=== PATIENT | female | born 1975 | race Two or more races ===

== ENCOUNTER 2016-12-01 22:04 | Emergency (ER) | payer MEDICAID ==
--- NOTE | 2016-12-02 00:46 | ER Document Report ---
ED GI/ - General Chief Complaint: Constipation Stated Complaint: BOWEL ISSUES Time seen by provider: 00:45 Notes: Patient is a 40-year-old female, A3, that comes emergency department for chief complaint of constipation and also vaginal bleeding. Patient states she was told she was 4-5 weeks along 2-3 weeks ago, had a positive but suggested a different hospital reportedly, states she has had vaginal spotting for the past week with some cramping. She denies fever, vomiting, flank pain, vaginal discharge, dysuria. - Related Data Allergies/Adverse Reactions: No Known Allergies Allergy (Unverified 12/01/16 22:31) Past Medical History - General Information source: Patient - Social History Smoking Status: Never Smoker Frequency of alcohol use: None Drug Abuse: None Lives with: Family Family History: Reviewed & Not Pertinent - Medical History Medical History: Negative Renal/ Medical History: Denies: Hx Peritoneal Dialysis Surgical Hx: Negative - Immunizations Immunizations up to date: Yes Hx Diphtheria, Pertussis, Tetanus Vaccination: Yes Review of Systems - Review of Systems Constitutional: No symptoms reported EENT: No symptoms reported Cardiovascular: No symptoms reported Respiratory: No symptoms reported Gastrointestinal: See HPI Genitourinary: See HPI Female Genitourinary: See HPI Musculoskeletal: No symptoms reported Skin: No symptoms reported Hematologic/Lymphatic: No symptoms reported Neurological/Psychological: No symptoms reported Physical Exam - Vital signs Vitals: Temp Pulse BP Pulse Ox 98.3 F 82 127/77 H 100 12/01/16 22:33 12/01/16 22:33 12/01/16 22:33 12/01/16 22:33 Interpretation: Normal - General General appearance: Appears well, Alert In distress: None - HEENT Head: Normocephalic, Atraumatic Eyes: Normal Extraocular movements intact: Yes Eyelashes: Normal Pupils: PERRL Sinus: Normal Nasal: Normal Mouth/Lips: Normal Mucous membranes: Normal Pharynx: Normal Neck: Normal - Respiratory Respiratory status: No respiratory distress Chest status: Nontender Breath sounds: Normal. No: Decreased air movement Chest palpation: Normal - Cardiovascular Rhythm: Regular. No: Tachycardia Heart sounds: Normal auscultation, S1 appreciated, S2 appreciated Murmur: No - Abdominal Inspection: Normal Distension: No distension Bowel sounds: Normal Tenderness: Nontender. No: Tender, Guarding Organomegaly: No organomegaly - Back Back: Normal, Nontender. No: Tender - Extremities General upper extremity: Normal inspection, Nontender, Normal color, Normal ROM , Normal temperature General lower extremity: Normal inspection, Nontender, Normal color, Normal ROM , Normal temperature, Normal weight bearing. 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 RhoGAM is not indicated. Patient still has not provided a urinalysis but is requesting to leave without giving a sample. Patient asymptomatic on reevaluation. Requesting stool softener, provided with options, discussed UNDERGROUND SUPERVISOR follow-up, patient states she has an appointment in several days for a close follow-up, provided with copies of her paperwork, discussed return precautions, patient states understanding and agreement. - Vital Signs Vital signs: Temp Pulse Resp BP Pulse Ox 99 F 88 20 132/68 H 99 12/02/16 05:29 12/02/16 05:29 12/02/16 05:29 12/02/16 05:29 12/02/16 05:29 - Laboratory Result Diagrams: 12/02/16 02:26 Laboratory results interpreted by me: 12/02/16 12/02/16 02:26 02:26 RDW 14.5 H Beta HCG, Quant 80.82 H Discharge - Discharge Clinical Impression: Vaginal bleeding Condition: Stable Disposition: HOME, SELF-CARE Additional Instructions: Examination and workup is consistent with an early . Because of the bleeding avoid any stressing physical activity such as running, jumping, lifting. Avoid sexual intercourse until cleared to do so by UNDERGROUND SUPERVISOR. Take your lab and ultrasound report with you to your appointment. Take the Colace as directed, take the magnesium citrate (start with 08/07 to 2 initially) to help move bowels. Return for any concerning symptoms. Prescriptions: Docusate Sodium [Colace 100 mg Capsule] 100 mg PO DAILY #30 capsule
[2016-12-02 02:36] LABS: ABSOLUTE BASOPHILS # (AUTO) 0.1 10^3/uL (0.0-0.2); ABSOLUTE EOSINOPHILS # (AUTO) 0.2 10^3/uL (0.0-0.6); ABSOLUTE LYMPHOCYTES (AUTO) 2.7 10^3/uL (0.5-4.7); ABSOLUTE MONOCYTES (AUTO) 0.5 10^3/uL (0.1-1.4); ABSOLUTE NEUT (AUTO) 3.3 10^3/uL (1.7-8.2); BASOPHILS % (AUTO) 0.9 % (0-2); EOSINOPHILS % (AUTO) 2.4 % (0-6); HEMATOCRIT 38.8 % (36.0-47.0); HEMOGLOBIN 12.8 g/dL (12.0-15.5); HGB HCT DIFFERENCE -0.4; LYMPHOCYTES % (AUTO) 40.4 % (13-45); MEAN CORPUSCULAR HEMOGLOBIN 28.5 pg (27.0-33.4); MEAN CORPUSCULAR HGB CONC 32.9 g/dL (32.0-36.0); MEAN CORPUSCULAR VOLUME 87 fl (80-97); RED BLOOD COUNT 4.48 10^6/uL (3.72-5.28); RED CELL DISTRIBUTION WIDTH 14.5 % (11.5-14.0); SEGMENTED NEUTROPHILS % (AUTO) 49.3 % (42-78); WHITE BLOOD COUNT 6.8 10^3/uL (4.0-10.5)
[2016-12-02] MEDS ORDERED: MAGNESIUM CITRATE 296 ML BOTTLE PO ONE (04:34)
[2016-12-02 05:30] VITALS: BP 132/68
== END 2016-12-02 05:29 | disposition home or self-care (01) ==
LOC: ER 22:04
DX: K59.00 Constipation, unspecified (principal); N93.8 Other specified abnormal uterine and vaginal bleeding
CPT/HCPCS: 99284; 86900; 86901; 36415; 82962; 84702; 85025; 76817; 93976; J3490